=== PATIENT | female | born 1985 | race Asian ===

== ENCOUNTER 2016-10-16 11:05 | Emergency (ER) | payer BC ==
[~2016-10-16] VITALS: Wt 69.0 kg
[~2016-10-16 11:05] MED LIST: ALPR0.25 PO; BACTDS PO; LORA1TAB PO; PROP10TA6 PO
[2016-10-16] MEDS ORDERED: PRED20TA PO (11:54)
--- NOTE | 2016-10-16 11:58 | ERD ---
ER Documentation Chief Complaint Date/Time DATE: 10/16/16 TIME: 11:56 Chief Complaint RASH FOR THE PAST FEW HOURS. NO SOB. MILD HOT FLASHES HPI This is a 31-year-old female who started having a rash to her arms and trunk that is itchy and red and raised. This happened a few hours after eating [place] food. No shortness of breath she had some hot flashes that are now gone. No shortness of breath no swelling of the face eyes tongue mouth or throat. No wheezing. She says she has had this before on occasion. ROS All systems reviewed and are negative except as per history of present illness. Medications Home Meds Active Scripts Prednisone* (Prednisone*) 20 Mg Tab, 60 MG PO DAILY for 4 Days, TAB Prov:KIARA OATES DO 10/16/16 Propranolol Hcl* (Propranolol Hcl*) 10 Mg Tablet, 10 MG PO QID, #20 TAB Prov:KODYRONNA DO 06/26/16 Alprazolam* (Xanax*) 0.25 Mg Tablet, 0.25 MG PO Q8H Y for ANXIETY, #5 TAB Prov:KODYRONNA DO 06/26/16 Lorazepam* (Lorazepam*) 1 Mg Tablet, 1 MG PO DAILY for 10 Days, #10 TAB 0 Refills Prov:CHICO CHAPIN PA-C 03/28/16 Sulfamethoxazole-Trimethoprim* (Bactrim* DS) 800-160 Mg Tab, 1 TAB PO BID for 7 Days, #14 TAB 0 Refills Prov:CHICO CHAPIN PA-C 03/28/16 Allergies Allergies: Coded Allergies: No Known Allergies (Verified Allergy, Mild, 03/24/14) PMhx/Soc History of Surgery: Yes () Anesthesia Reaction: No Hx Neurological Disorder: No Hx Respiratory Disorders: No Hx Cardiac Disorders: Yes (Heart Murmur, htn) Hx Psychiatric Problems: No Hx Miscellaneous Medical Probl: No Hx Alcohol Use: Yes (occassional) Hx Substance Use: No Hx Tobacco Use: Yes (1-2 cig) Smoking Status: Never smoker FmHx Family History: No coronary disease Physical Exam Vitals Vital Signs Date Time Temp Pulse Resp B/P Pulse Ox O2 Delivery O2 Flow Rate FiO2 10/16/16 11:08 98.6 68 20 151/103 98 Physical Exam Const: Well-developed, well-nourished Head: Atraumatic, normocephalic Eyes: Normal Conjunctiva, PERRLA, EOMI, normal sclera, no nystagmus ENT: Normal External Ears, Nose and Mouth, moist mucus membranes. Neck: Full range of motion. No meningismus, no lymphadenopathy. Resp: Clear to auscultation bilaterally, no wheezing, rhonchi, rales Cardio: Regular rate and rhythm, no murmurs, S1 S2 present Abd: Soft, non tender x 4, non distended. Normal bowel sounds, no guarding or rebound, no pulsitile abdominal masses or bruits Skin: Slight rash to both upper extremities and on trunk and thighs red itchy and slightly maculopapular h Back: No midline or flank tenderness Ext: No cyanosis, or edema, FROM x 4, normal inspection, neurovascularly intact x 4 Neur: Awake and alert, STR 5/5 x 4, sensation intact x 4, no focal findings, cerebellum intact Psych: Normal Mood and Affect Results 24 hrs Current Medications Medications (Trade) Dose Ordered Sig/Alisha Route PRN Reason Start Time Stop Time Status Last Admin Dose Admin Prednisone (Prednisone) 60 mg ONCE ONCE PO 10/16/16 12:00 10/16/16 12:01 Departure Diagnosis: Primary Impression: Allergic reaction Encounter type: initial encounter Qualified Code: T78.40XA - Allergic reaction, initial encounter Condition: Stable Patient Instructions: Allergic Reaction, Other (General) KIARA OATES DO Oct 16, 2016 11:58
[2016-10-16] MEDS ORDERED: predniSONE 20 MG TAB PO ONE (12:00)
== END 2016-10-16 12:01 | disposition home or self-care (01) ==
LOC: E/R 11:05
DX: R21 Rash and other nonspecific skin eruption (principal); I10 Essential (primary) hypertension; Z72.0 Tobacco use
CPT/HCPCS: J7512; Z7502; 99283

== ENCOUNTER 2018-11-27 21:53 | Emergency (ER) | payer SELFPAY ==
[~2018-11-27] VITALS: Ht 154.9 cm; Wt 81.4 kg
[~2018-11-27 21:53] MED LIST changes: +PRED20TA PO
[2018-11-27 22:03] VITALS: BP 158/96; PULSE 64; RESP 17; Ht 154.9 cm; Wt 81.4 kg
== END 2018-11-27 22:33 | disposition left against medical advice (07) ==
LOC: FTE 21:53
DX: Z53.21 Procedure and treatment not carried out due to patient leaving prior to being seen by health care provider (principal)